=== PATIENT | female | born 1955 | race Caucasian/White ===

== ENCOUNTER 2021-12-22 10:13 | Inpatient (IN) | payer MEDICARE, OTHER ==
[~2021-12-22] VITALS: Ht 162 cm; Wt 76.5 kg
[2021-12-22] VITALS (11 sets, daily range): BP systolic 110–157; BP diastolic 59–86
[2021-12-22] MEDS ORDERED: RT-ALBUTEROL HFA 8.5 GM INHALER IH STA (10:42)
[2021-12-22 10:55] LABS: BASOPHILS % (AUTO) 0 % (0-10); EOSINOPHILS # (AUTO) 0.1 10^3/uL (0.0-0.3); EOSINOPHILS % (AUTO) 1 % (0-10); HEMATOCRIT 32 % (35-52); HEMOGLOBIN 11.1 g/dL (11.5-16.0); LYMPHOCYTES # (AUTO) 1.7 10^3/uL (1.0-4.0); LYMPHOCYTES % (AUTO) 16 % (12-44); MEAN CORPUSCULAR HEMOGLOBIN 30 pg (25-34); MEAN CORPUSCULAR HGB CONC 35 g/dL (32-36); MEAN CORPUSCULAR VOLUME 87 fL (80-99); MEAN PLATELET VOLUME 11.6 fL (9.0-12.2); MONOCYTES # (AUTO) 0.8 10^3/uL (0.0-1.0); MONOCYTES % (AUTO) 8 % (0-12); NEUTROPHILS # (AUTO) 7.5 10^3/uL (1.8-7.8); NEUTROPHILS % (AUTO) 73 % (42-75); PLATELET COUNT 256 10^3/uL (130-400); WHITE BLOOD COUNT 10.3 10^3/uL (4.3-11.0)
[2021-12-22 10:59] LABS: ALBUMIN 3.5 GM/DL (3.2-4.5); POTASSIUM 3.7 MMOL/L (3.6-5.0)
[2021-12-22 11:00] LABS: CALCIUM 8.9 MG/DL (8.5-10.1)
[2021-12-22 11:02] LABS: PROTHROMBIN TIME PATIENT 13.7 SEC (12.2-14.7); TOTAL PROTEIN 6.8 GM/DL (6.4-8.2)
[2021-12-22 11:04] LABS: BILIRUBIN,TOTAL 0.5 MG/DL (0.1-1.0)
[2021-12-22 11:05] LABS: CREATININE SERUM 0.64 MG/DL (0.60-1.30)
--- NOTE | 2021-12-22 11:07 | Diagnostic Imaging Report ---
INDICATION: Chest pain. COMPARISON: No prior studies are available for comparison. FINDINGS: Heart is enlarged. There appears to be some consolidation in the left base, suggestive of pneumonia. Right lung is clear. No significant effusion or pneumothorax is seen. IMPRESSION: Left basilar infiltrate, consistent with pneumonia. Dictated by: Dictated on workstation # [id number]
[2021-12-22 11:08] LABS: MAGNESIUM 1.8 MG/DL (1.6-2.4)
[2021-12-22] MEDS ORDERED: RT-ALBUTEROL/IPRATROPIUM 3 ML (DUONEB) VIAL INH ONE (11:15)
[2021-12-22] MEDS ORDERED: cefTRIAXone 1 GM PRE-MIX 50 ML IV STA (11:26)
--- NOTE | 2021-12-22 11:43 | ED General ---
General Chief Complaint: Respiratory Problems Stated Complaint: SOB Nursing Triage Note: PT STATES SOB THAT STARTED ABOUT 1 WK AGO, DR TOLD HER TO TAKE OTC MEDS, SOB GETTING WORSE, SMOKER Source of Information: Patient Exam Limitations: No Limitations History of Present Illness Date Seen by Provider: Dec 22, 2021 Time Seen by Provider: 10:17 Initial Comments This is 66-year-old woman presents to the emergency room with complaints of rodri rtness of air x1 week. She has associated hoarse voice and reports a fever last week up to 104.2. She is afebrile presently. She has had a small amount of diarrhea the past couple of days. She denies any headache, myalgia, vomiting, or other symptoms of acute illness. She appears visibly dyspneic on interview. She denies any history of cardiopulmonary disease. She has diet controlled diabetes. Dr. Nishant Wakefield is her primary care provider. She does smoke. She denies any chest pain. She remains ambulatory today. Allergies and Home Medications Allergies Coded Allergies: No Known Drug Allergies (Unverified , 12/22/21) Patient Home Medication List Home Medication List Reviewed: Yes No Active Prescriptions or Reported Meds Review of Systems Review of Systems Constitutional: see HPI EENTM: see HPI Respiratory: see HPI Cardiovascular: see HPI Gastrointestinal: see HPI Genitourinary: no symptoms reported Musculoskeletal: no symptoms reported Skin: no symptoms reported Psychiatric/Neurological: No Symptoms Reported Hematologic/Lymphatic: No Symptoms Reported Immunological/Allergic: no symptoms reported Past Hesxzkh-Wrngqd-Powxwb Hx Patient Social History Tobacco Use?: Yes Tobacco type used: Cigarettes Smoking Status: Current Everyday Smoker Substance use?: No Alcohol Use?: No Past Medical History Surgery/Hospitalization HX: TYPE II DIABETIC, HYSTERECTOMY Surgeries: Yes Hysterectomy, Orthopedic (Carpal tunnel), Tonsillectomy Respiratory: Yes (Tobacco was) Cardiac: No Neurological: No : No Reproductive Disorders: No Genitourinary: No Gastrointestinal: No Musculoskeletal: No Endocrine: Yes Diabetes, Non-Insulin dep (Diet controlled) HEENT: No Cancer: No Psychosocial: No Integumentary: No Physical Exam Vital Signs Vital Signs - First Documented 12/22/21 12/22/21 10:17 10:25 Temp 36.6 Pulse 105 Resp 26 B/P (MAP) 155/81 (105) Pulse Ox 95 O2 Delivery Room Air O2 Flow Rate 2.00 Capillary Refill : Height, Weight, BMI Height: '" Weight: lbs. oz. kg; 29.00 BMI Method: General Appearance: WD/WN, Mild Distress (Respiratory) HEENT: PERRL/EOMI, TMs Normal, Normal ENT Inspection, Pharynx Normal, Other (Hoarse voice) Neck: Normal Inspection; No JVD Respiratory: No Accessory Muscle Use, No Respiratory Distress; No Crackles; Other (Course central expiratory rub or wheeze) Cardiovascular: Regular Rate, Rhythm, No Edema, No Murmur Gastrointestinal: Normal Bowel Sounds, Non Tender, Soft Extremity: Normal Inspection, Non Tender, No Calf Tenderness, No Pedal Edema Neurologic/Psychiatric: Alert, Oriented x3, No Motor/Sensory Deficits, Normal Mood/Affect, 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 Skin: Normal Color, Warm/Dry Focused Exam Lactate Level 12/22/21 11:33: Lactic Acid Level 0.96 Lactic Acid Level Laboratory Tests Test 12/22/21 11:33 Lactic Acid Level 0.96 MMOL/L (0.50-2.00) Progress/Results/Core Measures Suspected Sepsis SIRS Temperature: Pulse: 105 Respiratory Rate: 26 Laboratory Tests 12/22/21 10:22: White Blood Count 10.3 Blood Pressure 155 /81 Mean: 105 12/22/21 11:33: Lactic Acid Level 0.96 Laboratory Tests 12/22/21 10:22: Creatinine 0.64, INR Comment 1.0, Platelet Count 256, Total Bilirubin 0.5 Results/Orders Lab Results Laboratory Tests Test 12/22/21 10:22 12/22/21 10:27 12/22/21 11:33 Range/Units White Blood Count 10.3 4.3-11.0 10^3/uL Red Blood Count 3.66 L 3.80-5.11 10^6/uL Hemoglobin 11.1 L 11.5-16.0 g/dL Hematocrit 32 L 35-52 % Mean Corpuscular Volume 87 80-99 fL Mean Corpuscular Hemoglobin 30 25-34 pg Mean Corpuscular Hemoglobin Concent 35 32-36 g/dL Red Cell Distribution Width 12.9 10.0-14.5 % Platelet Count 256 130-400 10^3/uL Mean Platelet Volume 11.6 9.0-12.2 fL Immature Granulocyte % (Auto) 2 % Neutrophils (%) (Auto) 73 42-75 % Lymphocytes (%) (Auto) 16 12-44 % Monocytes (%) (Auto) 8 0-12 % Eosinophils (%) (Auto) 1 0-10 % Basophils (%) (Auto) 0 0-10 % Neutrophils # (Auto) 7.5 1.8-7.8 10^3/uL Lymphocytes # (Auto) 1.7 1.0-4.0 10^3/uL Monocytes # (Auto) 0.8 0.0-1.0 10^3/uL Eosinophils # (Auto) 0.1 0.0-0.3 10^3/uL Basophils # (Auto) 0.0 0.0-0.1 10^3/uL Immature Granulocyte # (Auto) 0.2 H 0.0-0.1 10^3/uL Prothrombin Time 13.7 12.2-14.7 SEC INR Comment 1.0 0.8-1.4 Activated Partial Thromboplast Time 36 H 24-35 SEC D-Dimer 2.06 H 0.00-0.49 UG/ML Sodium Level 127 L 135-145 MMOL/L Potassium Level 3.7 3.6-5.0 MMOL/L Chloride Level 93 L 98-107 MMOL/L Carbon Dioxide Level 23 21-32 MMOL/L Anion Gap 11 5-14 MMOL/L Blood Urea Nitrogen 4 L 7-18 MG/DL Creatinine 0.64 0.60-1.30 MG/DL Estimat Glomerular Filtration Rate 98 BUN/Creatinine Ratio 6 Glucose Level 227 H 70-105 MG/DL Calcium Level 8.9 8.5-10.1 MG/DL Corrected Calcium 9.3 8.5-10.1 MG/DL Magnesium Level 1.8 1.6-2.4 MG/DL Total Bilirubin 0.5 0.1-1.0 MG/DL Aspartate Amino Transf (AST/SGOT) 15 5-34 U/L Alanine Aminotransferase (ALT/SGPT) 29 0-55 U/L Alkaline Phosphatase 127 40-136 U/L Myoglobin 87.8 10.0-92.0 NG/ML Troponin I 0.406 *H <0.028 NG/ML C-Reactive Protein High Sensitivity 10.82 H 0.00-0.50 MG/DL B-Type Natriuretic Peptide 761.7 H <100.0 PG/ML Total Protein 6.8 6.4-8.2 GM/DL Albumin 3.5 3.2-4.5 GM/DL Procalcitonin 0.12 H <0.10 NG/ML Influenza Type A (RT-PCR) Not Detected Not Detecte Influenza Type B (RT-PCR) Not Detected Not Detecte SARS-CoV-2 RNA (RT-PCR) Not Detected Not Detecte Lactic Acid Level 0.96 0.50-2.00 MMOL/L My Orders Orders - SALOMON CARRENO MD Covid 19 Inhouse Test (12/22/21 10:17) Influenza A And B By Pcr (12/22/21 10:17) Bnp [place] (12/22/21 10:41) Hs C Reactive Protein (12/22/21 10:41) Cbc With Automated Diff (12/22/21 10:41) Magnesium (12/22/21 10:41) Chest 1 View, Ap/Pa Only (12/22/21 10:41) Ekg Tracing (12/22/21 10:41) Comprehensive Metabolic Panel (12/22/21 10:41) Myoglobin Serum (12/22/21 10:41) Protime With Inr (12/22/21 10:41) Partial Thromboplastin Time (12/22/21 10:41) O2 (12/22/21 10:41) Monitor-Rhythm Ecg Trace Only (12/22/21 10:41) Lipid Panel (12/23/21 06:00) Ed Iv/Invasive Line Start (12/22/21 10:41) Troponin I [place] (12/22/21 10:41) Albuterol/Ipra Inhalation Soln (Duoneb I (12/22/21 11:15) Blood Culture (12/22/21 11:26) Vital Signs Adult Sepsis Patie Q15M (12/22/21 11:26) Remove Rings In Anticipation O (12/22/21 11:26) Lactic Acid Analyzer (12/22/21 11:26) Procalcitonin (Pct) (12/22/21 11:26) Fibrin Degradation Products (12/22/21 11:26) Ceftriaxone 1 Gm Pre-Mix (Rocephin 1 Gm (12/22/21 11:26) Aspirin Chewable Tablet (Baby Aspirin Ch (12/22/21 11:45) Ed Admission (Communication) (12/22/21 11:43) Medications Given in ED Current Medications Medications Dose Ordered Sig/Karyn Route Start Time Stop Time Status Last Admin Dose Admin Albuterol/ Ipratropium 3 ml ONCE ONCE INH 12/22/21 11:15 12/22/21 11:16 DC 12/22/21 11:12 3 ML Vital Signs/I&O 12/22/21 12/22/21 12/22/21 10:17 10:25 11:12 Temp 36.6 Pulse 105 Resp 26 B/P (MAP) 155/81 (105) Pulse Ox 95 95 98 O2 Delivery Room Air Nasal Cannula Nasal Cannula O2 Flow Rate 2.00 2.00 Capillary Refill : Blood Pressure Mean: 105 Progress Note : Progress Note Patient had some improvement with a DuoNeb treatment. There was left lower lobe infiltrate on the chest x-ray. Pneumonia was presumed. Antibiotics were initiated with Rocephin after drawing blood culture and lactic acid. Troponin was elevated. Patient received aspirin. Dr. Martinez was consulted. Dr. Camarena presented to the emergency room to evaluate the patient. She was admitted for treatment of pneumonia and further evaluation of her elevated troponin. D-dimer was elevated but CT angiogram revealed no pulmonary embolus. CT angiogram revealed bilateral pleural effusion and the left lower lobe infiltrate previously stated. ECG Initial ECG Impression Date: Dec 22, 2021 Initial ECG Impression Time: 10:47 Initial ECG Rate: 85 Comment Sinus rhythm with no ST elevation or depression. No abnormal intervals or axis deviation. Diagnostic Imaging Diagonstic Imaging: Xray Plain Films/CT/US/NM/MRI: chest Comments NAME: LAVONNE AZAR [facility] REC#: [id number] PT STATUS: REG ER : 1955 PHYSICIAN: SALOMON CARRENO MD ADMIT DATE: 12/22/21/ER Draft Date of Exam:12/22/21 CHEST 1 VIEW, AP/PA ONLY INDICATION: Chest pain. COMPARISON: No prior studies are available for comparison. FINDINGS: Heart is enlarged. There appears to be some consolidation in the left base, suggestive of pneumonia. Right lung is clear. No significant effusion or pneumothorax is seen. IMPRESSION: Left basilar infiltrate, consistent with pneumonia. Dictated on workstation # [id number] Dict: 12/22/21 1103 Trans: 12/22/21 1107 AS [id number] Interpreted by: YOLY GONZALEZ MD Reviewed: Reviewed by Me Diagonstic Imaging: CT Plain Films/CT/US/NM/MRI: chest Comments CT angiogram chest viewed by me and report reviewed. See report below: NAME: LAVONNE AZAR [facility] REC#: [id number] PT STATUS: REG ER : 1955 PHYSICIAN: SALOMON CARRENO MD ADMIT DATE: 12/22/21/ER Draft Date of Exam:12/22/21 CT ANGIO CHEST W PROCEDURE: CT angiography of the chest with contrast. TECHNIQUE: Multiple contiguous axial images were obtained through the chest after uneventful bolus administration of intravenous contrast. 3D reconstructed CTA MIP acquisitions were also performed. Auto Exposure Controls were utilized during the CT exam to meet ALARA standards for radiation dose reduction. INDICATION: Shortness of breath and elevated D-dimer. No prior studies are available for comparison. FINDINGS: Evaluation of pulmonary arterial system is without evidence of thromboembolism. No filling defects are seen within central, lobar or segmental branches. Thoracic aorta is normal caliber. There is no dissection. There is a small pericardial effusion. There is a small right and small to moderate left pleural effusion. Parenchymal evaluation does show some patchy airspace infiltrates in the upper lobes, greatest in the left upper lobe. There is also consolidation and air bronchograms in the left lower lobe consistent with pneumonia. The upper abdomen is unremarkable. IMPRESSION: 1. No evidence of pulmonary embolism or acute aortic disease. 2. Small pericardial effusion and bilateral pleural effusions, left greater. 3. Bilateral upper lobe infiltrates as well as significant consolidation air broncho-grams left lower lobe consistent with pneumonia. 4. No other significant abnormalities detected. Dictated on workstation # [id number] Dict: 12/22/21 1230 Trans: 12/22/21 1242 SA [id number] Interpreted by: YOLY GONZALEZ MD Departure Communication (Admissions) Time/Spoke to Admitting Phy: 11:43 Dr. Camarena Time/Spoke to Consulting Phy: 12:37 Dr. Martinez Impression Primary Impression: Elevated troponin Additional Impressions: Left lower lobe pneumonia Qualified Codes: J18.9 - Pneumonia, unspecified organism Hyponatremia Dyspnea Qualified Codes: R06.00 - Dyspnea, unspecified Bronchospasm Disposition: ADMITTED INPATIENT Condition: Improved Admissions Decision to Admit Reason: Admit from ER (General) Decision to Admit/Date: Dec 22, 2021 Time/Decision to Admit Time: 11:43 Departure-Patient Inst. Scripts No Active Prescriptions or Reported Meds Copy Copies To 1: NISHANT WAKEFIELD MD, JOSHUA T MD Dec 22, 2021 11:43
[2021-12-22] MEDS ORDERED: ASPIRIN 81 MG CHEW (CHILDREN'S ASA) PO ONE (11:45)
[2021-12-22] MEDS ORDERED: IOHEXOL 350 MG/ML 100 ML (OMNIPAQUE 350) VIAL IV ONE (12:00)
[2021-12-22] MEDS ORDERED: CATHETER FLUSH 10 ML SYR IV PRN (12:00)
[2021-12-22] MEDS ORDERED: HOLD METFORMIN - RECEIVED CONTRAST 20 ML VIAL IV SCH (12:00)
[2021-12-22] MEDS ORDERED: NS 100 ML (IVPB) BAG IV ONE (12:00)
--- NOTE | 2021-12-22 12:43 | Diagnostic Imaging Report ---
PROCEDURE: CT angiography of the chest with contrast. TECHNIQUE: Multiple contiguous axial images were obtained through the chest after uneventful bolus administration of intravenous contrast. 3D reconstructed CTA MIP acquisitions were also performed. Auto Exposure Controls were utilized during the CT exam to meet ALARA standards for radiation dose reduction. INDICATION: Shortness of breath and elevated D-dimer. No prior studies are available for comparison. FINDINGS: Evaluation of pulmonary arterial system is without evidence of thromboembolism. No filling defects are seen within central, lobar or segmental branches. Thoracic aorta is normal caliber. There is no dissection. There is a small pericardial effusion. There is a small right and small to moderate left pleural effusion. Parenchymal evaluation does show some patchy airspace infiltrates in the upper lobes, greatest in the left upper lobe. There is also consolidation and air bronchograms in the left lower lobe consistent with pneumonia. The upper abdomen is unremarkable. IMPRESSION: 1. No evidence of pulmonary embolism or acute aortic disease. 2. Small pericardial effusion and bilateral pleural effusions, left greater. 3. Bilateral upper lobe infiltrates as well as significant consolidation air broncho-grams left lower lobe consistent with pneumonia. 4. No other significant abnormalities detected. Dictated by: Dictated on workstation # [id number]
--- NOTE | 2021-12-22 13:06 | History & Physical-Hospitalist ---
History of Present Illness HPI/Chief Complaint Patient is 66-year-old female who presented to the emergency department due to shortness of breath. She reports this is been going on for roughly 1 week. She states she has had fevers and myalgias. Her temperature was up to 104.2. 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 She denies any known lung disease but is a current smoker. Imaging revealed a left lower lobe pneumonia and she was admitted due to visible dyspnea. She also was found to have an elevated troponin at 0.4 for which cardiology has been consulted. Source: patient Date Seen 12/22/21 Time Seen by a Provider: 12:59 Attending Physician PCP Admitting Physician: Attending Physician: Referring Physician Date of Admission Home Medications & Allergies Home Medications Reviewed patient Home Medication Reconciliation performed by pharmacy medication reconciliations echo technician and/or nursing. Patients Allergies have been reviewed. Allergies Allergies Coded Allergies No Known Drug Allergies ([id number]/31/22) Past Mavomxm-Lqzion-Wletli Hx Patient Social History Employed/Student: employed Tobacco Use?: Yes Tobacco type used: Cigarettes Smoking Status: Current Everyday Smoker Substance use?: No Alcohol Use?: No Current Status Primary Language: American Preferred Spoken Language: American Implanted or Applied Medical D: None Review of Systems Constitutional: chills, fever, malaise EENTM: ear discharge Respiratory: cough, dyspnea on exertion, phlegm, short of breath Cardiovascular: No chest pain, No edema, No Hx of Intervention, No syncope Gastrointestinal: no symptoms reported Genitourinary: no symptoms reported Musculoskeletal: no symptoms reported Skin: no symptoms reported Psychiatric/Neurological: No Symptoms Reported Physical Exam Physical Exam Vital Signs Vital Signs - First Documented 12/22/21 12/22/21 12/22/21 10:17 10:25 14:03 Temp 36.6 Pulse 105 Resp 26 B/P (MAP) 155/81 (105) Pulse Ox 95 O2 Delivery Room Air O2 Flow Rate 2.00 FiO2 28 Capillary Refill : Height, Weight, BMI Height: '" Weight: lbs. oz. kg; 29.00 BMI Method: General Appearance: No Apparent Distress, Chronically ill HEENT: PERRL/EOMI, Moist Mucous Membranes; No Scleral Icterus (L), No Scleral Icterus (R) Neck: Normal Inspection, Supple Respiratory: No Accessory Muscle Use, Rhonci, Wheezing, Other (visibly short of breath) Cardiovascular: Regular Rate, Rhythm, No Murmur Gastrointestinal: Normal Bowel Sounds, Non Tender, Soft Extremity: No Calf Tenderness, No Pedal Edema Neurologic/Psychiatric: Alert, Oriented x3, Normal Mood/Affect Results Results/Procedures Labs Laboratory Tests 12/22/21 10:22 12/23/21 05:40 Patient resulted labs reviewed. Imaging: Reviewed Imaging Report Imaging [facility] [place], [place] NAME: LAVONNE AZAR [facility] REC#: [id number] PT STATUS: ADM IN : 1955 PHYSICIAN: SALOMON CARRENO MD ADMIT DATE: 12/22/21/[facility] Signed Date of Exam:12/22/21 CHEST 1 VIEW, AP/PA ONLY INDICATION: Chest pain. COMPARISON: No prior studies are available for comparison. FINDINGS: Heart is enlarged. There appears to be some consolidation in the left base, suggestive of pneumonia. Right lung is clear. No significant effusion or pneumothorax is seen. IMPRESSION: Left basilar infiltrate, consistent with pneumonia. Dictated by: Dictated on workstation # [id number] Dict: 12/22/21 1103 Trans: 12/22/21 1557 [id number] Interpreted by: YOLY GONZALEZ MD Electronically signed by: YOLY GONZALEZ MD 12/22/21 1557 Assessment/Plan Admission Diagnosis CAP Admission Status: Inpatient Order (span 2 midnights) Reason for Inpatient Admission: NSTEMI with CAP, see below Assessment and Plan CAP Not septic Rocephin and Azithro Sputum Culture MAT protocol Likely has underlying COPD but not diagnosed NSTEMI Troponin elevated tisha rrival Trend ASA Cardiology consulted, appreciate recs Hyponatremia Trend ?SIADH from pna Diagnosis/Problems Diagnosis/Problems (1) Left lower lobe pneumonia Status: Acute Qualifiers: Pneumonia type: due to unspecified organism Qualified Codes: J18.9 - Pneumonia, unspecified organism (2) Hyponatremia Status: Acute (3) Elevated troponin Status: Acute ELAYNE RÍOS MD Dec 22, 2021 13:06
[2021-12-22] MEDS ORDERED: ONDANSETRON 4 MG/2 ML (SDV) Z0FRAN IV PRN (13:45)
[2021-12-22] MEDS ORDERED: MILK OF MAGNESIA 400 MG/5 ML 30 ML UDC PO PRN (13:45)
[2021-12-22] MEDS ORDERED: MELATONIN 3 MG TABLET PO PRN (13:45)
[2021-12-22] MEDS ORDERED: ANTACID SUSP 30 ML UDC (MYLANTA) PO PRN (13:45)
[2021-12-22] MEDS ORDERED: PATIENT MAY USE OWN MEDS, ALL PO SCH (13:45)
[2021-12-22] MEDS: AZITHROMYCIN INJECTION 500 MG in NS (IVPB) 250 ML IV SCH (13:57)
[2021-12-22] MEDS ORDERED: RT-ALBUTEROL/IPRATROPIUM 3 ML (DUONEB) VIAL INH PRN (14:15)
--- NOTE | 2021-12-22 16:44 | Consultation-Cardiology ---
HPI-Cardiology Cardiology Consultation: Date of Consultation 12/22/21 Date of Admission 12/22/21 Attending Physician Nishant Stevens MD Admitting Physician Admitting Physician: Narda Camarena MD Attending Physician: Narda Camarena MD Consulting Physician BEN BALBUENA JR, MD HPI: Time Seen by a Provider: 16:39 Chief Complaint: REASON FOR CONSULTATION: Abnormal troponin level. I had the pleasure of seeing Flora in the cardiac stepdown unit at [facility] in [place], [place] today. She has no known history of coronary artery disease and her only cardiac risk factor appears to be cigarette smoking. She was in her usual state of reasonably good health until about 1 week ago when she started developing a cough productive of some greenish sputum as well as dyspnea on exertion. She had a low-grade fever. She called her primary care doctor who recommended she try taking some [id number]-fzenxyv medication. However, over this past weekend her shortness of breath had progressed. She had gone to an urgent care who recommended she be seen in the emergency room. During her evaluation in the emergency room, she was found to have a left lower lobe pneumonia but was also found to have an elevated troponin level and a cardiology consultation was requested. She denies any chest discomfort. She has had some paroxysmal nocturnal dyspnea but this seems to be associated with coughing spells at night. She denies orthopnea, palpitations, lightheadedness, syncope, or ankle edema. She smokes approximately 1 pack of cigarettes per day. Certain portions of this document may have been dictated utilizing voice recognition technology. Inherent to this technology, typographical and grammatical errors may exist. As much as I am diligent to identify and correct these mistakes, some errors may remain in the document. Review of Systems-Cardiology Review of Systems Other comments Review of 10 organ systems is as per the history of present illness, otherwise negative. PMY-[id number]-Efqbuh Hx Patient Social History Employed/Student: employed Smoking Status: Current Everyday Smoker Have you traveled recently?: No Alcohol Use?: No Pt feels they are or have been: No Tobacco type used: Cigarettes Past Medical History PMH As described under Assessment. Family Medical History Family Medical History: The patient does not know of any family history of premature coronary artery disease in first-degree relatives. Allergies and Home Medications Allergies Coded Allergies: No Known Drug Allergies (Unverified , 12/22/21) Patient Home Medication List Home Medication List Reviewed: Yes No Active Prescriptions or Reported Meds Exam Vital Signs Vital Signs Date Time Temp Pulse Resp B/P (MAP) Pulse Ox O2 Delivery O2 Flow Rate FiO2 12/22/21 15:00 103 19 130/70 (90) 99 High Flow N/C 2.00 12/22/21 14:03 36.6 28 Physical Exam General: Alert. No acute distress. Well nourished and appears stated age. Eye: Extraocular movements are intact. Conjunctivae are clear. There are no xanthelasma. HENT: Normocephalic. Atraumatic. Carotid pulsations 2/2 without bruits. Neck: Jugular venous pressure does not appear elevated. No thyromegaly appreciated. Respiratory: Lungs have rhonchi at the left base. Respirations are non-labored. Breath sounds are equal. Symmetrical chest wall expansion. Cardiovascular: Normal rate. Regular rhythm. No murmur. No gallop. Point of maximal impulse is not appear displaced. Good pulses equal in all extremities. No edema. Gastrointestinal: Soft. Normal bowel sounds. Skin: Skin turgor is normal. There is no pallor. Musculoskeletal: No kyphosis or scoliosis appreciated. Neurologic: Alert and oriented to person, place, time. Cranial nerves 3-12 appear grossly intact. The patient has good motor tone strength in the upper and lower extremities bilaterally. Psychiatric: Cooperative. Appropriate mood & affect. Labs Laboratory Tests Test 12/22/21 10:22 12/22/21 10:27 12/22/21 11:33 12/22/21 13:54 Range/Units White Blood Count 10.3 4.3-11.0 10^3/uL Red Blood Count 3.66 L 3.80-5.11 10^6/uL Hemoglobin 11.1 L 11.5-16.0 g/dL Hematocrit 32 L 35-52 % Mean Corpuscular Volume 87 80-99 fL Mean Corpuscular Hemoglobin 30 25-34 pg Mean Corpuscular Hemoglobin Concent 35 32-36 g/dL Red Cell Distribution Width 12.9 10.0-14.5 % Platelet Count 256 130-400 10^3/uL Mean Platelet Volume 11.6 9.0-12.2 fL Immature Granulocyte % (Auto) 2 % Neutrophils (%) (Auto) 73 42-75 % Lymphocytes (%) (Auto) 16 12-44 % Monocytes (%) (Auto) 8 0-12 % Eosinophils (%) (Auto) 1 0-10 % Basophils (%) (Auto) 0 0-10 % Neutrophils # (Auto) 7.5 1.8-7.8 10^3/uL Lymphocytes # (Auto) 1.7 1.0-4.0 10^3/uL Monocytes # (Auto) 0.8 0.0-1.0 10^3/uL Eosinophils # (Auto) 0.1 0.0-0.3 10^3/uL Basophils # (Auto) 0.0 0.0-0.1 10^3/uL Immature Granulocyte # (Auto) 0.2 H 0.0-0.1 10^3/uL Prothrombin Time 13.7 12.2-14.7 SEC INR Comment 1.0 0.8-1.4 Activated Partial Thromboplast Time 36 H 24-35 SEC D-Dimer 2.06 H 0.00-0.49 UG/ML Sodium Level 127 L 135-145 MMOL/L Potassium Level 3.7 3.6-5.0 MMOL/L Chloride Level 93 L 98-107 MMOL/L Carbon Dioxide Level 23 21-32 MMOL/L Anion Gap 11 5-14 MMOL/L Blood Urea Nitrogen 4 L 7-18 MG/DL Creatinine 0.64 0.60-1.30 MG/DL Estimat Glomerular Filtration Rate 98 BUN/Creatinine Ratio 6 Glucose Level 227 H 70-105 MG/DL Calcium Level 8.9 8.5-10.1 MG/DL Corrected Calcium 9.3 8.5-10.1 MG/DL Magnesium Level 1.8 1.6-2.4 MG/DL Total Bilirubin 0.5 0.1-1.0 MG/DL Aspartate Amino Transf (AST/SGOT) 15 5-34 U/L Alanine Aminotransferase (ALT/SGPT) 29 0-55 U/L Alkaline Phosphatase 127 40-136 U/L Myoglobin 87.8 10.0-92.0 NG/ML Troponin I 0.406 *H 0.406 *H <0.028 NG/ML C-Reactive Protein High Sensitivity 10.82 H 0.00-0.50 MG/DL B-Type Natriuretic Peptide 761.7 H <100.0 PG/ML Total Protein 6.8 6.4-8.2 GM/DL Albumin 3.5 3.2-4.5 GM/DL Procalcitonin 0.12 H <0.10 NG/ML Influenza Type A (RT-PCR) Not Detected Not Detecte Influenza Type B (RT-PCR) Not Detected Not Detecte SARS-CoV-2 RNA (RT-PCR) Not Detected Not Detecte Lactic Acid Level 0.96 0.50-2.00 MMOL/L ECG Impression ECG Comment Electrocardiogram from the emergency room shows sinus rhythm with small inferior Q waves and inferior ST-T wave changes concerning for ischemia. Diagnosis/Problems Diagnosis/Problems (1) Elevated troponin Status: Acute Assessment & Plan: Her troponin level is marginally elevated but flat. She does have some ischemic changes on her electrocardiogram but is not having any chest discomfort. She does have dyspnea but is also been diagnosed with pneumonia. Unclear whether or not this could be a non-ST elevation myocardial infarction. She has been started on aspirin. I will start low-dose beta- rubens and statin medication. I will obtain another troponin level, electrocardiogram and an echocardiogram in the morning. Depending upon the results of these tests, we may need to consider further evaluation with a cardiac catheterization. (2) Pericardial effusion Assessment & Plan: She had a chest CT that shows a small pericardial effusion. We will assess this further with the echocardiogram as outlined above. (3) Abnormal electrocardiogram Assessment & Plan: Her electrocardiogram shows inferior T wave changes concerning for ischemia and borderline inferior ST elevation. We will proceed as above. (4) Cigarette smoker Assessment & Plan: She needs to quit smoking. She was counseled in this regard. (5) Type 2 diabetes mellitus without complication Assessment & Plan: She states that she has been on diet therapy. I have taken the liberty of adding a HbA1c to her previous labs. BEN BALBUENA JR, MD Dec 22, 2021 16:44
[2021-12-22] MEDS: RT-ALBUTEROL/IPRATROPIUM 3 ML (DUONEB) VIAL INH SCH ×2 (19:39→22:24)
[2021-12-22] MEDS: ROSUVASTATIN 20 MG (CRESTOR) TABLET PO SCH (20:04)
[2021-12-23] VITALS (9 sets, daily range): BP systolic 131–150; BP diastolic 59–76
[2021-12-23] MEDS: RT-ALBUTEROL/IPRATROPIUM 3 ML (DUONEB) VIAL INH SCH ×6 (02:34→21:19)
[2021-12-23 06:18] LABS: TRIGLYCERIDES 75 MG/DL (<150); VLDL CHOLESTEROL 15 MG/DL (5-40)
[2021-12-23 06:23] LABS: CHOLESTEROL 78 MG/DL (< 200)
[2021-12-23 06:24] LABS: HDL CHOLESTEROL 23 MG/DL (40-60)
[2021-12-23] MEDS: NICOTINE PATCH REMOVAL TP SCH (08:43)
[2021-12-23] MEDS ORDERED: CATHETER FLUSH 10 ML SYR IV PRN (08:45)
[2021-12-23] MEDS ORDERED: NS IV 1000 ML 1,000 ML IV ONE (08:45)
[2021-12-23] MEDS: ASPIRIN E.C. 81 MG (ECOTRIN) TAB PO SCH (09:09)
[2021-12-23] MEDS: guaiFENesin (MUCINEX) 600 MG TAB PO SCH ×2 (09:09→19:46)
--- NOTE | 2021-12-23 09:11 | Cardiology Progress Note ---
Progress Note-Cardiology Events since last exam Date Seen by Provider: Dec 23, 2021 Time Seen by Provider: 09:08 Events since last exam I am following her due to possible NSTEMI. Overnight, her troponin became more elevated. She still denies chest pain. Her shortness of breath is about the same. She still has a cough with slight sputum production. She denies palpitations, syncope, or ankle edema. Certain portions of this document may have been dictated utilizing voice recognition technology. Inherent to this technology, typographical and grammatical errors may exist. As much as I am diligent to identify and correct these mistakes, some errors may remain in the document. Vitals Last set of Vitals Signs Vital Signs 12/22/21 12/23/21 12/23/21 12/23/21 14:03 07:00 07:18 07:38 Pulse 89 Resp 9 B/P (MAP) 146/74 (98) Pulse Ox 97 O2 Delivery High Flow N/C O2 Flow Rate 2.00 FiO2 28 Labs Labs Laboratory Tests 12/22/21 10:22 Exam Vital Signs Vital Signs Date Time Temp Pulse Resp B/P (MAP) Pulse Ox O2 Delivery O2 Flow Rate FiO2 12/23/21 07:38 97 High Flow N/C 2.00 12/23/21 07:18 89 12/23/21 07:00 9 146/74 (98) 12/22/21 20:00 37.0 12/22/21 14:03 28 Physical Exam General: Alert. No acute distress. Eye: No xanthelasma. HENT: Normocephalic. Neck: Jugular venous pressure does not appear elevated. Respiratory: Lungs have diffuse scattered wheezes. Respirations are non-labored. Breath sounds are equal. Symmetrical chest wall expansion. Cardiovascular: Normal rate. Regular rhythm. No murmur. No gallop. No edema. Gastrointestinal: Soft. Normal bowel sounds. Skin: Warm. Dry. Neurologic: Alert and oriented to person, place, time. Cranial nerves 3-11 grossly intact. Psychiatric: Cooperative. Appropriate mood & affect. Labs Laboratory Tests Test 12/22/21 10:22 12/22/21 10:27 12/22/21 11:33 12/22/21 13:54 Range/Units White Blood Count 10.3 4.3-11.0 10^3/uL Red Blood Count 3.66 L 3.80-5.11 10^6/uL Hemoglobin 11.1 L 11.5-16.0 g/dL Hematocrit 32 L 35-52 % Mean Corpuscular Volume 87 80-99 fL Mean Corpuscular Hemoglobin 30 25-34 pg Mean Corpuscular Hemoglobin Concent 35 32-36 g/dL Red Cell Distribution Width 12.9 10.0-14.5 % Platelet Count 256 130-400 10^3/uL Mean Platelet Volume 11.6 9.0-12.2 fL Immature Granulocyte % (Auto) 2 % Neutrophils (%) (Auto) 73 42-75 % Lymphocytes (%) (Auto) 16 12-44 % Monocytes (%) (Auto) 8 0-12 % Eosinophils (%) (Auto) 1 0-10 % Basophils (%) (Auto) 0 0-10 % Neutrophils # (Auto) 7.5 1.8-7.8 10^3/uL Lymphocytes # (Auto) 1.7 1.0-4.0 10^3/uL Monocytes # (Auto) 0.8 0.0-1.0 10^3/uL Eosinophils # (Auto) 0.1 0.0-0.3 10^3/uL Basophils # (Auto) 0.0 0.0-0.1 10^3/uL Immature Granulocyte # (Auto) 0.2 H 0.0-0.1 10^3/uL Prothrombin Time 13.7 12.2-14.7 SEC INR Comment 1.0 0.8-1.4 Activated Partial Thromboplast Time 36 H 24-35 SEC D-Dimer 2.06 H 0.00-0.49 UG/ML Sodium Level 127 L 135-145 MMOL/L Potassium Level 3.7 3.6-5.0 MMOL/L Chloride Level 93 L 98-107 MMOL/L Carbon Dioxide Level 23 21-32 MMOL/L Anion Gap 11 5-14 MMOL/L Blood Urea Nitrogen 4 L 7-18 MG/DL Creatinine 0.64 0.60-1.30 MG/DL Estimat Glomerular Filtration Rate 98 BUN/Creatinine Ratio 6 Glucose Level 227 H 70-105 MG/DL Calcium Level 8.9 8.5-10.1 MG/DL Corrected Calcium 9.3 8.5-10.1 MG/DL Magnesium Level 1.8 1.6-2.4 MG/DL Total Bilirubin 0.5 0.1-1.0 MG/DL Aspartate Amino Transf (AST/SGOT) 15 5-34 U/L Alanine Aminotransferase (ALT/SGPT) 29 0-55 U/L Alkaline Phosphatase 127 40-136 U/L Myoglobin 87.8 10.0-92.0 NG/ML Troponin I 0.406 *H 0.406 *H <0.028 NG/ML C-Reactive Protein High Sensitivity 10.82 H 0.00-0.50 MG/DL B-Type Natriuretic Peptide 761.7 H <100.0 PG/ML Total Protein 6.8 6.4-8.2 GM/DL Albumin 3.5 3.2-4.5 GM/DL Procalcitonin 0.12 H <0.10 NG/ML Influenza Type A (RT-PCR) Not Detected Not Detecte Influenza Type B (RT-PCR) Not Detected Not Detecte SARS-CoV-2 RNA (RT-PCR) Not Detected Not Detecte Lactic Acid Level 0.96 0.50-2.00 MMOL/L Thyroid Stimulating Hormone (TSH) 0.84 0.35-4.94 UIU/ML Test 12/23/21 05:40 Range/Units Troponin I 0.518 *H <0.028 NG/ML Triglycerides Level 75 <150 MG/DL Cholesterol Level 78 < 200 MG/DL LDL Cholesterol Direct 43 1-129 MG/DL VLDL Cholesterol 15 5-40 MG/DL HDL Cholesterol 23 L 40-60 MG/DL Diagnosis/Problems Diagnosis/Problems (1) Non-ST elevation myocardial infarction (NSTEMI), initial care episode Assessment & Plan: Her troponin level his become more elevated this morning. Her electrocardiogram shows worsening inferior and now lateral T wave inversion. Her echocardiogram shows inferior hypokinesis. I am concerned she is suffering a non-ST elevation myocardial infarction involving either the right coronary artery or possibly dominant left circumflex coronary artery. I recommend fur ther evaluation with a cardiac catheterization. She is on aspirin, carvedilol and intensive dose rosuvastatin. I have explained the benefits and risks of the procedure to the patient and she is in agreement to proceed. (2) Pericardial effusion Assessment & Plan: She had a chest CT that shows a small pericardial effusion. Her echocardiogram also shows a small, circumferential pericardial effusion. Unclear whether or not this could be related to the non-ST elevation myocardial infarction or perhaps some other etiology. There is no evidence of hemodynamic compromise related to the effusion. (3) Abnormal electrocardiogram Assessment & Plan: Her electrocardiogram shows inferior T wave changes concerning for ischemia and borderline inferior ST elevation and now with lateral T wave inversion. We will proceed as above. (4) Cigarette smoker Assessment & Plan: She needs to quit smoking. She was counseled in this regard. (5) Type 2 diabetes mellitus without complication Assessment & Plan: She states that she has been on diet therapy. I have taken the liberty of adding a HbA1c to her previous labs. BEN BALBUENA JR, MD Dec 23, 2021 09:11
[2021-12-23] MEDS: NICOTINE 14 MG (NICODERM) PATCH TD SCH (09:13)
[2021-12-23] MEDS ORDERED: HEParin (CATH LAB) 2,000 ML IV ONE (09:41)
[2021-12-23] MEDS ORDERED: LIDOCAINE 1% INJ 30 ML (XYLOCAINE) VIAL ONE (09:41)
--- NOTE | 2021-12-23 09:42 | Progress Note - Hospitalist ---
Subjective HPI/CC On Admission Date Seen by Provider: Dec 23, 2021 Patient is 66-year-old female who presented to the emergency department due to shortness of breath. She reports this is been going on for roughly 1 week. She states she has had fevers and myalgias. Her temperature was up to 104.2. 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 She denies any known lung disease but is a current smoker. Imaging revealed a left lower lobe pneumonia and she was admitted due to visible dyspnea. She also was found to have an elevated troponin at 0.4 for which cardiology has been consulted. Subjective/Events-last exam Pt reports doing better but having persistent SOB. Cardiac cath was recommended but she is adamant that she will not undergo cath today. She states she knows she is not having a heart attack and is more worried about her breathing. We discussed the risks and she states she would like to talk to Dr Martinez before agreeing. Focused Exam Lactate Level 12/22/21 11:33: Lactic Acid Level 0.96 Objective Exam Vital Signs Vital Signs Date Time Temp Pulse Resp B/P (MAP) Pulse Ox O2 Delivery O2 Flow Rate FiO2 12/23/21 08:00 97 High Flow N/C 2.00 12/23/21 07:18 89 12/23/21 07:00 9 146/74 (98) 12/22/21 20:00 37.0 12/22/21 14:03 28 Capillary Refill : General Appearance: No Apparent Distress, Chronically ill Respiratory: No Accessory Muscle Use, Rhonci; No Wheezing Cardiovascular: Regular Rate, Rhythm, No Murmur Gastrointestinal: Normal Bowel Sounds, Soft Neurologic/Psychiatric: Alert, Oriented x3, Normal Mood/Affect Results/Procedures Lab Laboratory Tests 12/22/21 10:22 Patient resulted labs reviewed. Assessment/Plan Assessment and Plan Assess & Plan/Chief Complaint CAP Rocephin and Azithro Sputum Culture MAT protocol Likely has underlying COPD but not diagnosed NSTEMI Troponin elevated tisha rrival Trend ASA Cardiology consulted, appreciate recs Cath recommended- defer to Dr Martinez to discuss risks and benefits per patient's request Hyponatremia Trend, morning labs pending Diagnosis/Problems Diagnosis/Problems (1) Left lower lobe pneumonia Status: Acute Qualifiers: Pneumonia type: due to unspecified organism Qualified Codes: J18.9 - Pneumonia, unspecified organism (2) Hyponatremia Status: Acute (3) Elevated troponin Status: Acute ELAYNE RÍOS MD Dec 23, 2021 9:42 am
[2021-12-23 10:03] LABS: CALCIUM 8.3 MG/DL (8.5-10.1); CREATININE SERUM 0.59 MG/DL (0.60-1.30); POTASSIUM 4.3 MMOL/L (3.6-5.0)
[2021-12-23] MEDS ORDERED: fentaNYL INJ 100 MCG/2 ML AMP ONE (12:23)
[2021-12-23] MEDS ORDERED: VERAPAMIL 5 MG/2 ML (CALAN) VIAL IV ONE (12:23)
[2021-12-23] MEDS ORDERED: MIDAZOLAM 2 MG/2 ML (VERSED) VIAL ONE (12:24)
[2021-12-23] MEDS ORDERED: NITRO DRIP 25000 MCG/D5W 250 ML IV ONE (12:24)
[2021-12-23] MEDS ORDERED: HEParin 1000 UNIT/ML (10ML VIAL) FOR BOLUS ONE (12:24)
--- NOTE | 2021-12-23 12:42 | Pre-Op Note & Conscious Sedat ---
Pre-Operative Progress Note Date H&P Reviewed: Dec 23, 2021 Time H&P Reviewed: 12:41 History & Physical: H&P Reviewed, Patient Examed, No changes noted Pre-Op Diagnosis: Non-ST elevation myocardial infarction Conscious Sedation Pre-Proced ASA Score 2 For ASA 3 and 4: Consider anesthesia and medical clearance. Also, for patients with a history of failed moderate sedation consider anesthesia. Airway Lungs Heart ASA score ASA 1: a normal healthy patient ASA 2: a patient with a mild systemic disease (mid diabetes, controlled hypertension, obesity ASA 3: a patient with a severe systemic disease that limits activity (angina, COPD, prior Myocardial infarction) ASA 4: a patient with an incapacitating disease that is a constant threat to life (CHF, renal failure) ASA 5: a moribund patient not expected to survive 24 hrs. (ruptured aneurysm) ASA 6: a declared brain- patient whose organs are being harvested. For emergent operations, add the letter E after the classification Mallampati Classification Grade 2 Sedation Plan Analgesia, Amnesia, Plan communicated to team members, Discussed options with patient/fam, Discussed risks with patient/fam The patient is an appropriate candidate to undergo the planned procedure, sedation, and anesthesia. The patient immediately re-assessed prior to indication. Given her current clinical status, she is considered moderately frail. She has no history of heart failure. BEN BALBUENA JR, MD Dec 23, 2021 12:42
--- NOTE | 2021-12-23 13:13 | Cardiac Cath Report ---
CARDIAC CATHETERIZATION DATE OF PROCEDURE: 12/23/2021 INDICATION: Non-ST elevation myocardial infarction. HISTORY: The patient is a 66 year old female with no previously known history of coronary artery disease but with cardiac risk factors of hypertension, type 2 diabetes and cigarette smoking. She presented to the hospital with pneumonia. During her evaluation, she was also found to have a possible non-ST elevation myocardial infarction. She is now referred for further evaluation with a cardiac catheterization. Given her current clinical status, she is considered moderately frail. She has no history of heart failure. PROCEDURES PERFORMED: 1. Left heart catheterization with hemodynamic measurements. 2. Diagnostic [place] coronary angiography. PROCEDURE DESCRIPTION: After informed consent and in the fasting state, left heart catheterization was performed through the right radial artery utilizing a 6 Portuguese system by percutaneous approach. Standard 5 Portuguese Michelle catheters were utilized for the diagnostic portion of the procedure. All catheters were exchanged over a guidewire. Following the procedure, a vascular band was applied to the radial artery access site and the sheath was removed with good hemostasis. RESULTS: HEMODYNAMICS: The aortic pressure was 130/65 mmHg. The left ventricular pressure was 134/0 mmHg with a left ventricular end-diastolic pressure of 22 mmHg. There was no significant pressure gradient upon pullback across aortic valve. CORONARY ANGIOGRAPHY: Left main coronary artery: Calcified but free of significant disease. Left anterior descending coronary artery: Diffuse up to 90% stenosis from the mid segment down to the distal and apical portion of the vessel with SEAN-1 flow. There was a small first diagonal branch which contains a 90% stenosis proximally but this is approximately a 1.25 mm vessel. Left circumflex coronary artery: Calcified and there was a 90% stenosis in a large first obtuse marginal branch with SEAN-2 flow. Right coronary artery: Mildly calcified and dominant. There is a long segment of disease extending from the proximal down to the distal segment up to 80% stenotic with SEAN-3 flow and another 80% stenosis more distally in between the posterior descending artery and posterolateral branches. The posterior descending artery contains diffuse disease up to 70% stenotic. IMPRESSION: 1. Severely elevated left ventricular end-diastolic pressure. 2. Severe, calcific [place] three-vessel coronary artery disease in a right dominant system as outlined above. 3. The patient is known to have normal left ventricular systolic function with an estimated ejection fraction of 55-60% by echocardiogram performed earlier today. 4. I will consider referring the patient for coronary artery bypass surgery. Certain portions of this document may have been dictated utilizing voice recognition technology. Inherent to this technology, typographical and grammatical errors may exist. As much as I am diligent to identify and correct these mistakes, some errors may remain in the document. BEN BALBUENA JR, MD Dec 23, 2021 13:13
[2021-12-23] MEDS ORDERED: NS IV 1000 ML 1,000 ML IV SCH (13:15)
[2021-12-23] MEDS: cefTRIAXone 1 GM PRE-MIX 50 ML IV SCH (18:32)
[2021-12-23] MEDS: AZITHROMYCIN INJECTION 500 MG in NS (IVPB) 250 ML IV SCH (18:33)
[2021-12-23] MEDS: ROSUVASTATIN 20 MG (CRESTOR) TABLET PO SCH (19:46)
[2021-12-24] VITALS (9 sets, daily range): BP systolic 107–143; BP diastolic 59–84
[2021-12-24] MEDS: RT-ALBUTEROL/IPRATROPIUM 3 ML (DUONEB) VIAL INH SCH ×4 (02:19→14:53)
--- NOTE | 2021-12-24 08:25 | Progress Note ---
Standard Progress Note Progress Notes/Assess & Plan Date Seen by a Provider: Dec 24, 2021 Time Seen by a Provider: 08:26 Progress/Assessment & Plan Following a cardiac catheterization on 12/23, Joey Barrera MD cardiothoracic surgeon from [facility] reviewed her coronary angiograms and told me that the distal left anterior descending coronary artery and distal right coronary artery would be too small for grafting. As such, I have elected to proceed with stent placement to the obtuse marginal branch which I suspect was the ischemia related vessel for the non-ST elevation myocardial infarction. We will proceed this morning. BEN BALBUENA JR, MD Dec 24, 2021 08:25
--- NOTE | 2021-12-24 08:26 | Pre-Op Note & Conscious Sedat ---
Pre-Operative Progress Note Date H&P Reviewed: Dec 24, 2021 Time H&P Reviewed: 08:27 History & Physical: H&P Reviewed, Patient Examed, No changes noted Changes from last HP Changes as noted in progress note from today. Pre-Op Diagnosis: Coronary artery disease with unstable angina and non-ST elevation CA. Conscious Sedation Pre-Proced Time 12:41 ASA Score 2 For ASA 3 and 4: Consider anesthesia and medical clearance. Also, for patients with a history of failed moderate sedation consider anesthesia. Airway Lungs Heart ASA score ASA 1: a normal healthy patient ASA 2: a patient with a mild systemic disease (mid diabetes, controlled hype rtension, obesity ASA 3: a patient with a severe systemic disease that limits activity (angina, COPD, prior Myocardial infarction) ASA 4: a patient with an incapacitating disease that is a constant threat to life (CHF, renal failure) ASA 5: a moribund patient not expected to survive 24 hrs. (ruptured aneurysm) ASA 6: a declared brain- patient whose organs are being harvested. For emergent operations, add the letter E after the classification Mallampati Classification Grade 2 Sedation Plan Analgesia, Amnesia, Plan communicated to team members, Discussed options with patient/fam, Discussed risks with patient/fam The patient is an appropriate candidate to undergo the planned procedure, miguel ángel tion, and anesthesia. The patient immediately re-assessed prior to indication. Given her current clinical status, she is considered moderately frail. She has no history of heart failure. BEN BALBUENA JR, MD Dec 24, 2021 08:26
[2021-12-24] MEDS ORDERED: CLOPIDOGREL 300 MG (PLAVIX) TABLET PO NR (08:30)
[2021-12-24] MEDS ORDERED: VERAPAMIL 5 MG/2 ML (CALAN) VIAL IV ONE (08:30)
[2021-12-24] MEDS ORDERED: NS IV 1000 ML 1,000 ML IV ONE (08:30)
[2021-12-24] MEDS ORDERED: CLOPIDOGREL 300 MG (PLAVIX) TABLET PO ONE (08:30)
[2021-12-24] MEDS ORDERED: LIDOCAINE 1% INJ 20 ML VIAL ONE (08:31)
[2021-12-24] MEDS: NICOTINE 14 MG (NICODERM) PATCH TD SCH (08:31)
[2021-12-24] MEDS: NICOTINE PATCH REMOVAL TP SCH (08:31)
[2021-12-24] MEDS ORDERED: NITRO DRIP 25000 MCG/D5W 250 ML IV ONE (08:31)
[2021-12-24] MEDS ORDERED: HEParin (CATH LAB) 2,000 ML IV ONE (08:31)
[2021-12-24] MEDS ORDERED: HEParin 1000 UNIT/ML (10ML VIAL) FOR BOLUS ONE (08:31)
[2021-12-24] MEDS ORDERED: MIDAZOLAM 5 MG/5 ML (VERSED) VIAL ONE (08:31)
[2021-12-24] MEDS: ASPIRIN E.C. 81 MG (ECOTRIN) TAB PO SCH (08:31)
[2021-12-24] MEDS: guaiFENesin (MUCINEX) 600 MG TAB PO SCH (08:31)
[2021-12-24] MEDS ORDERED: fentaNYL INJ 100 MCG/2 ML AMP ONE (08:31)
[2021-12-24] MEDS ORDERED: NS IV 1000 ML 1,000 ML ONE (08:43)
[2021-12-24] MEDS ORDERED: AZIT250T12 PO (09:00)
[2021-12-24] MEDS ORDERED: CEPH500T PO (09:00)
--- NOTE | 2021-12-24 09:03 | Discharge Inst-Simple/Standard ---
Discharge Inst-Standard Discharge Medications New, Converted or Re-Newed RX: Transmitted to Pharmacy Patient Instructions/Follow Up Plan of Care/Instructions/FU: Please continue to take your medications as written. Please follow up with your PCP to follow up this hospital stay. Please follow up with Dr Martinez as scheduled. Activity as Tolerated: Yes Discharge Diet: ADA Diet, Cardiac Diet Return to The Hospital For: Chest pain, shortness of breath, fever, weakness, if you feel you are getting worse. ELAYNE RÍOS MD Dec 24, 2021 09:03
--- NOTE | 2021-12-24 09:42 | Cardiac Cath Report ---
CARDIAC CATHETERIZATION DATE OF PROCEDURE: 12/24/2021 INDICATION: Non-ST elevation myocardial infarction and coronary artery disease with unstable angina. HISTORY: The patient is a 66 year old female with no previously known history of coronary artery disease prior to this admission. She was admitted to the hospital with pneumonia. During her evaluation, she was found to have elevated troponin levels consistent with a non-ST elevation myocardial infarction. She subsequently underwent a cardiac catheterization on 12/23/2021 that showed severe [place] three-vessel coronary artery disease with very small distal left anterior descending and right coronary arteries. I had Joey Barrera MD a cardiothoracic surgeon from [facility] in [place], [place] reviewed the coronary angiograms. His feeling was that the distal left anterior descending and distal right coronary arteries would be too small for bypass grafting. She had significant disease in the mid segment of the left circumflex coronary artery which appeared to be the ischemia related vessel for the non-ST elevation myocardial infarction. As such, she is now referred for stent placement to the left circumflex coronary artery. Given her current clinical status, she is considered moderately frail. She has no history of heart failure. PROCEDURES PERFORMED: 1. Drug-eluting stent placement to left circumflex coronary artery. PROCEDURE DESCRIPTION: After informed consent and in the fasting state, left heart catheterization was performed through the right radial artery utilizing a 6 British system by percutaneous approach. A 6 British CLS 3.5 guide catheter was utilized for the procedure. The catheter once exchanged over a guidewire. Following the procedure, a vascular band was applied to the radial artery access site and the sheath was removed with good hemostasis. RESULTS: HEMODYNAMICS: The aortic pressure was 159/69 mmHg. The aortic valve was not crossed. CORONARY ANGIOGRAPHY: The left coronary system was the only vessel studied. Left main coronary artery: Calcified but free of significant disease. Left anterior descending coronary artery: Diffuse up to 90% stenosis from the mid segment down to the distal and apical portion of the vessel with SEAN-1 flow. There was a small first diagonal branch which contains a 90% stenosis proximally but this is approximately a 1.25 mm vessel. Left circumflex coronary artery: Calcified and there was a 90% stenosis in a large first obtuse marginal branch with SEAN-2 flow. PERCUTANEOUS CORONARY INTERVENTION: Percutaneous coronary intervention was carried out on the left circumflex coronary artery through a 6 [place] CLS 3.5 guide catheter. The lesion was successfully crossed with a Opendisc guidewire. I subsequently performed coronary angioplasty with a 2.5 x 12 mm Trek balloon at a pressure of 10 grayson. Flow was improved. I subsequently deployed a 3 x 15 mm drug-eluting Xience Skypoint stent at a pressure of 20 grayson. Following stent placement, there was 0% residual stenosis with SEAN-3 flow. There is no evidence of edge dissection. IMPRESSION: 1. Status post drug-eluting stent placement to the midportion of the left circumflex coronary artery with a 3 x 15 mm Xience Skypoint stent with 0% residual stenosis and SEAN-3 flow. This was the ischemia related vessel for the non-ST elevation myocardial infarction. Certain portions of this document may have been dictated utilizing voice recognition technology. Inherent to this technology, typographical and grammatical errors may exist. As much as I am diligent to identify and correct these mistakes, some errors may remain in the document. BEN BALBUENA JR, MD Dec 24, 2021 09:42
[2021-12-24] MEDS ORDERED: NS IV 1000 ML 1,000 ML IV SCH (09:45)
--- NOTE | 2021-12-24 09:56 | Discharge Summary ---
Diagnosis/Chief Complaint Date of Admission Dec 22, 2021 at 11:44 Date of Discharge Discharge Date: Dec 24, 2021 Admission Diagnosis [facility] Nishant Stevens MD Discharge Diagnosis (1) Non-ST elevation myocardial infarction (NSTEMI), initial care episode Assessment & Plan: Her troponin level his become more elevated this morning. Her electrocardiogram shows worsening inferior and now lateral T wave inversion. Her echocardiogram shows inferior hypokinesis. I am concerned she is suffering a non-ST elevation myocardial infarction involving either the right coronary artery or possibly dominant left circumflex coronary artery. I recommend further evaluation with a cardiac catheterization. She is on aspirin, carvedilol and intensive dose rosuvastatin. I have explained the benefits and risks of the procedure to the patient and she is in agreement to proceed. (2) Pericardial effusion Assessment & Plan: She had a chest CT that shows a small pericardial effusion. Her echocardiogram also shows a small, circumferential pericardial effusion. U nclear whether or not this could be related to the non-ST elevation myocardial infarction or perhaps some other etiology. There is no evidence of hemodynamic compromise related to the effusion. (3) Abnormal electrocardiogram Assessment & Plan: Her electrocardiogram shows inferior T wave changes concerning for ischemia and borderline inferior ST elevation and now with lateral T wave inversion. We will proceed as above. (4) Cigarette smoker Assessment & Plan: She needs to quit smoking. She was counseled in this regard. (5) Type 2 diabetes mellitus without complication Assessment & Plan: She states that she has been on diet therapy. I have taken the liberty of adding a HbA1c to her previous labs. Discharge Summary Discharge Physical Exam Allergies: Coded Allergies: No Known Drug Allergies (Unverified , 12/22/21) Vitals & I&Os Vital Signs Date Time Temp Pulse Resp B/P (MAP) Pulse Ox O2 Delivery O2 Flow Rate FiO2 12/24/21 09:57 78 12/24/21 09:45 12 143/69 (93) 97 Room Air 12/24/21 08:34 36.8 12/24/21 04:00 2.00 12/22/21 14:03 28 General Appearance: No Apparent Distress, WD/WN Respiratory: Lungs Clear, No Accessory Muscle Use Cardiovascular: Regular Rate, Rhythm Gastrointestinal: Normal Bowel Sounds, Soft Neurologic/Psychiatric: Alert, Oriented x3 Hospital Course Patient was admitted to the hospital secondary to community-acquired pneumonia and NSTEMI. She was treated with IV antibiotics and did well. Her troponin trended up and she was taken to cardiac cath. At first she was being considered for candidate for high risk intervention or bypass. After discussion with vascular surgery they elected to repeat cath here and she received a stent to the mid circumflex. She was feeling much better and able to be discharged home in stable and improved condition. She is to follow-up with her primary care provider, Dr. Nishant Stevens and [employer] Dr. Martinez. Labs (last 24 hrs) Microbiology 12/22/21 Gram Stain - Final, Resulted 12/22/21 Sputum Culture - Preliminary, Resulted Slight Growth Present 12/22/21 Blood Culture - Preliminary, Resulted No growth Patient resulted labs reviewed. Imaging: Reviewed Imaging Report Discussion & Recommendations Discharge Planning: >30 minutes discharge planning Discharge Home Medications: Active Scripts Active Azithromycin 250 Mg Tablet 250 Mg PO DAILY Cephalexin 500 Mg Tablet 500 Mg PO BID Instructions to patient/family Please see electronic discharge instructions given to patient. ELAYNE RÍOS MD Dec 24, 2021 9:56 am
[2021-12-24] MEDS: cefTRIAXone 1 GM PRE-MIX 50 ML IV SCH (13:00)
[2021-12-24] MEDS ORDERED: ASPI-1238 PO (14:19)
[2021-12-24] MEDS ORDERED: CLOP75TA28 PO (14:19)
[2021-12-24] MEDS ORDERED: ROSU20TA32 PO (14:19)
[2021-12-24] MEDS ORDERED: CARV3.122 PO (14:19)
[2021-12-24] MEDS ORDERED: NITR0.4T39 SL (14:20)
[2021-12-25] MEDS ORDERED: CLOPIDOGREL 75 MG (PLAVIX) TABLET PO SCH (09:00)
== END 2021-12-24 16:00 | disposition home or self-care (01) | DRG 246 ==
LOC: EDUNIT# 10:13 → ER 10:17 → CSD 11:44 → EDLOC 11:44
PROVIDERS: ADMIT Family Medicine; ATTEND Family Medicine
PROC: 4A023N7 Measurement of Cardiac Sampling and Pressure, Left Heart, Percutaneous Approach (ICD-10-PCS; 2021-12-23)
PROC: B2111ZZ Fluoroscopy of Multiple Coronary Arteries using Low Osmolar Contrast (ICD-10-PCS; 2021-12-23)
PROC: 027034Z Dilation of Coronary Artery, One Artery with Drug-eluting Intraluminal Device, Percutaneous Approach (ICD-10-PCS; principal; 2021-12-24)
PROC: B2101ZZ Fluoroscopy of Single Coronary Artery using Low Osmolar Contrast (ICD-10-PCS; 2021-12-24)
DX: I21.4 Non-ST elevation (NSTEMI) myocardial infarction (principal); J18.9 Pneumonia, unspecified organism; I31.39 Other pericardial effusion (noninflammatory); E87.1 Hypo-osmolality and hyponatremia; I25.10 Atherosclerotic heart disease of native coronary artery without angina pectoris; I10 Essential (primary) hypertension; E11.9 Type 2 diabetes mellitus without complications; F17.210 Nicotine dependence, cigarettes, uncomplicated; Z20.822 Contact with and (suspected) exposure to COVID-19
CPT/HCPCS: 36415; 71045; 71275; 80048; 80053; 80061; 83036; 83605; 83735; 83874; 83880; 84145; 84443; 84484; 85025; 85347; 85379; 85610; 85730; 86141; 87040; 87070; 87205; 87636; 93005; 93041; 93306; 93458; 94640; 94760